=== PATIENT | female | born 1945 | race Caucasian/White ===

== ENCOUNTER → 2022-08-30 10:11 | Outpatient (CLI) | payer MEDICARE, OTHER, SELFPAY ==
[2022-08-30 11:24] LABS: Add Manual Diff / Slide Review NO; Basophils Absolute Auto 0 /uL (0-100); Basophils Percent Auto 0.8 % (0-2); Eosinophils Absolute Auto 400 /uL (0-450); Eosinophils Percent Auto 7.4 % (2-4); Hematocrit 43.7 % (36-46); Hemoglobin 14.8 g/dL (12.0-16.0); Lymphocytes Absolute Auto 1300 /uL (1100-4500); Lymphocytes Percent Auto 23.2 % (25-40); Mean Corpuscular Hemoglobin 29.1 PG (26-34); Mean Corpuscular Volume 85.5 fL (80-100); Monocytes Absolute Auto 400 /uL (0-900); Monocytes Percent Auto 6.6 % (3-14); Neutrophils Absolute Auto 3400 /uL (1500-7000); Platelet Count 173 X10^3/uL (150-400); Red Blood Cell Count 5.11 X10^6/uL (4.0-5.2); Red Cell Distribution Width 13.9 % (11.6-14.8); White Blood Cell Count 5.4 X10^3/uL (4.5-11.0)
[2022-08-30 11:32] LABS: Hemoglobin A1C% w Est Avg Glu 5.6 % (4.0-6.0)
[2022-08-30 12:00] LABS: Alanine Aminotransferase 20 IU/L (<35); Albumin Globulin Ratio 1.4 (1.0-2.8); Alkaline Phosphatase 78 U/L (38-126); Aspartate Aminotransferase 23 IU/L (14-36); BUN Creatinine Ratio 27.6 (6-22); Bilirubin Total 0.5 mg/dL (0.2-1.3); Blood Urea Nitrogen 21 mg/dL (7-17); Calcium 9.3 mg/dL (8.4-10.2); Carbon Dioxide 31 mmol/L (22-32); Chloride 101 mmol/L (98-107); Cholesterol 225 mg/dL (140-199); Estimated Glomerular Filt Rate > 60 mL/min (>60); Globulin 2.9 g/dL (1.7-4.1); Glucose 70 mg/dL (80-110); HDL Cholesterol 51 mg/dL (40-60); HEMOLYSIS < 15 (0-50); LDL Cholesterol Calculated 140 mg/dL (<100); Sodium 137 mmol/L (137-145); Total Protein 6.9 g/dL (6.3-8.2); Triglycerides 171 mg/dL (35-150)
== END ==
PROVIDERS: PCP Family Medicine; Referring Provider Family Medicine; Visit Provider Family Medicine
DX: Z00.00 Encounter for general adult medical examination without abnormal findings (principal); R07.89 Other chest pain
CPT/HCPCS: 36415; 80053; 80061; 83036; 85025

== ENCOUNTER → 2022-10-04 10:42 | Outpatient (CLI) | payer MEDICARE, OTHER, SELFPAY ==
--- NOTE | 2022-10-04 10:44 | DI.RAD.S_ITS ---
PROCEDURE: XR CHEST 2V INDICATIONS: SHORTNESS OF BREATH TECHNIQUE: 2 views of the chest were acquired. COMPARISON: None. FINDINGS: Surgical changes and devices: None. Lungs and pleura: Increased bronchovascular markings in bilateral hilar region are seen with mild bronchial wall thickening. No definite focal infiltrate. No pleural effusions or pneumothorax. Mediastinum: Tortuous thoracic aorta is seen.. Heart size is normal. Bones and chest wall: No suspicious bony abnormalities. Soft tissues appear unremarkable. IMPRESSION: Suggestion of mild reactive airway disease. No definite focal infiltrate. No pleural effusion or pneumothorax. Dictated by: Jerry Bryan M.D. on 10/04/2022 at 12:56 Approved by: Jerry Bryan M.D. on 10/04/2022 at 12:57
== END ==
PROVIDERS: PCP Family Medicine; Referring Provider Family Medicine; Visit Provider Family Medicine
DX: R06.02 Shortness of breath (principal)
CPT/HCPCS: 71046

== ENCOUNTER → 2022-11-07 11:26 | Outpatient (CLI) | payer MEDICARE, OTHER, SELFPAY ==
[2022-11-07 12:17] LABS: COVID19 -Nasal RAPID Negative (Negative)
== END ==
PROVIDERS: PCP Family Medicine; Referring Provider Internal Medicine; Visit Provider Internal Medicine
DX: Z20.822 Contact with and (suspected) exposure to COVID-19 (principal)
CPT/HCPCS: 87635; C9803

== ENCOUNTER → 2022-11-07 11:29 | Outpatient (CLI) | payer MEDICARE, OTHER, SELFPAY ==
--- NOTE | 2022-11-13 09:35 | PM.PFT.1 ---
Pulmonary Function Test Referral & Results Date Patient Seen: 11/07/22 Requesting provider: Dennis Mendoza Results: The spirometry demonstrates an FVC of 2.34 L which is 89% of predicted. The FEV1 was measured at 1.40 L which is 72% of predicted. The FEV1/FVC ratio was 60 which is 80% of predicted. Following the administration of bronchodilator there was a 31% improvement in FEF 25-75%. Lung volumes show an SVC of 2.44 L which is 93% of predicted. The diffusing capacity was measured at 25.08 which is 109% of predicted. The maximum voluntary ventilation was reduced Interpretation: This study demonstrates moderate obstructive lung disease with evidence of some limited benefit after bronchodilator, most prominent in small airways has noted above with improvement in the FEF 25-75% Lung volumes and diffusing capacity appear to be normal Clinical correlation suggested
== END ==
PROVIDERS: PCP Family Medicine; Referring Provider Family Medicine; Visit Provider Family Medicine
DX: R06.02 Shortness of breath (principal); J98.8 Other specified respiratory disorders; Z20.822 Contact with and (suspected) exposure to COVID-19
CPT/HCPCS: 87635; 94060; 94726; 94729; C9803

== ENCOUNTER → 2022-11-11 13:28 | Outpatient (CLI) | payer MEDICARE, OTHER, SELFPAY ==
--- NOTE | 2022-11-11 13:35 | DI.NM.S_ITS ---
PROCEDURE: NM EXERCISE TREADMILL NON NUC COMPARISON: None. INDICATIONS: chest pressure FINDINGS: The patient exercised for 6 minutes and 46 seconds and reached target heart rate with normal hemodynamic response to exercise. No diagnostic ST changes, no ectopy, and no angina during the study. Good exercise capacity (J LUIS -33%). IMPRESSION: Low risk, normal treadmill ECG only stress test with good exercise capacity (J LUIS -33%). Dictated by: Khadijah Enciso MD on 11/12/2022 at 16:42 Approved by: Khadijah Enciso MD on 11/12/2022 at 16:45
[2022-11-11 21:25] LABS: COVID19 -Nasal RAPID Negative (Negative)
== END ==
PROVIDERS: PCP Family Medicine; Referring Provider Family Medicine; Visit Provider Family Medicine
DX: R07.89 Other chest pain (principal); Z20.822 Contact with and (suspected) exposure to COVID-19
CPT/HCPCS: 87635; 93017

== ENCOUNTER → 2025-05-31 12:01 | Outpatient (CLI) | payer MEDICARE, OTHER, SELFPAY ==
[2025-05-31 12:50] LABS: Add Manual Diff / Slide Review NO; Hematocrit 46.6 % (36-46); Hemoglobin 15.6 g/dL (12.0-16.0); Lymphocytes Absolute Auto 1300 /uL (1100-4500); Mean Corpuscular HGB Conc 33.5 % (30-36); Mean Corpuscular Hemoglobin 28.8 PG (26-34); Mean Corpuscular Volume 86.1 fL (80-100); Platelet Count 193 X10^3/uL (150-400)
[2025-05-31 14:00] LABS: Alanine Aminotransferase 16 IU/L (<35); Albumin 4.2 g/dL (3.5-5.0); Albumin Globulin Ratio 1.8 (1.0-2.8); Alkaline Phosphatase 88 U/L (38-126); Blood Urea Nitrogen 18 mg/dL (7-17); Calcium 9.4 mg/dL (8.4-10.2); Carbon Dioxide 27 mmol/L (22-32); Chloride 102 mmol/L (98-107); Cholesterol 240 mg/dL (140-199); Estimated Glomerular Filt Rate > 60 mL/min (>60); Globulin 2.4 g/dL (1.7-4.1); Glucose 86 mg/dL (70-99); HDL Cholesterol 59 mg/dL (40-60); HEMOLYSIS < 15 (0-50); Potassium 4.8 mmol/L (3.4-5.1); Sodium 137 mmol/L (137-145); Total Protein 6.6 g/dL (6.3-8.2); Triglycerides 116 mg/dL (35-150)
[2025-05-31 14:22] LABS: Hemoglobin A1C% w Est Avg Glu 5.6 % (4.0-6.0)
[2025-05-31 17:16] LABS: Hep C Virus Ab w/Reflex Quant NEGATIVE s/c (NEGATIVE)
== END ==
PROVIDERS: PCP Family Medicine; Referring Provider Family Medicine; Visit Provider Family Medicine
DX: E78.2 Mixed hyperlipidemia (principal); Z00.00 Encounter for general adult medical examination without abnormal findings; J44.9 Chronic obstructive pulmonary disease, unspecified
CPT/HCPCS: 36415; 80053; 80061; 83036; 85025; 86803